=== PATIENT | female | born 1985 | race Caucasian/White ===

== ENCOUNTER → 2018-09-11 | Outpatient (RCR) | payer OTHER | LOC: PT 08-29 09:44 | PROVIDERS: ATTEND Specialist | DX: S93.402A Sprain of unspecified ligament of left ankle, initial encounter (principal); M79.672 Pain in left foot; M62.81 Muscle weakness (generalized); M25.672 Stiffness of left ankle, not elsewhere classified; R26.2 Difficulty in walking, not elsewhere classified ==

== ENCOUNTER 2018-09-13 09:07 | Outpatient (RCR) | payer OTHER | END 2018-10-12 | LOC: PT 09:07 | PROVIDERS: ATTEND Specialist | DX: S93.402A Sprain of unspecified ligament of left ankle, initial encounter (principal); M79.672 Pain in left foot; M25.672 Stiffness of left ankle, not elsewhere classified; M62.81 Muscle weakness (generalized); R26.2 Difficulty in walking, not elsewhere classified ==

== ENCOUNTER 2018-09-24 16:26 | Emergency (ER) | payer SELFPAY ==
[~2018-09-24] VITALS: Ht 162.6 cm; Wt 81.6 kg
[2018-09-24] MEDS ORDERED: CEFTRIAXONE SOD 1 GM VIAL IM ONE (17:00)
[2018-09-24] MEDS ORDERED: METRONIDAZOLE 500 MG TAB PO ONE (17:15)
[2018-09-24] MEDS ORDERED: AZITHROMYCIN 250 MG TAB PO ONE (17:15)
[2018-09-24 18:09] LABS: BILIRUBIN,URINE NEGATIVE (NEGATIVE); CLARITY,URINE SL CLOUDY (CLEAR); COLOR,URINE RED (YELLOW); KETONES,URINE NEGATIVE (NEGATIVE); LEUKOCYTE ESTERASE ,URINE 2+ (NEGATIVE); NITRITE,URINE NEGATIVE (NEGATIVE); PREGNANCY TEST, URINE NEGATIVE (NEGATIVE); PROTEIN,URINE DIPSTICK 1+ (NEGATIVE); URINE UROBILINOGEN 0.2 mg/dL (0.2 - 1)
[2018-09-24 18:16] LABS: BACTERIA,URINE MANY /HPF; RBC,URINE 21-50 /HPF (0-5)
[2018-09-24] MEDS ORDERED: PREDNISONE 20 MG TAB PO ONE (18:45)
[2018-09-24] MEDS ORDERED: LIDOCAINE HCL 1% LOCAL INJ 20 ML VIAL ONE (19:57)
== END 2018-09-24 20:40 | disposition home or self-care (01) ==
LOC: ER 16:26
DX: R21 Rash and other nonspecific skin eruption (principal)
CPT/HCPCS: 81001; 81025; 99282; J0696; J2001; J7512